=== PATIENT | male | born 1960 | race Caucasian/White ===

== ENCOUNTER 2016-12-04 03:22 | Emergency (ER) | payer BC ==
[~2016-12-04] VITALS: Ht 177.8 cm; Wt 88.3 kg
[2016-12-04] MEDS ORDERED: PREDNISONE50 MG PO (04:25)
[2016-12-04] MEDS ORDERED: NORCO 5/3251 TABLET PO (04:25)
[2016-12-04] MEDS ORDERED: VALIUM5 MG PO (04:25)
[2016-12-04] MEDS ORDERED: PERCOCET 5/31 TABLET PO (06:26)
[2016-12-04 06:36] VITALS: BP 158/104
== END 2016-12-04 06:38 | disposition home or self-care (01) ==
LOC: EXP 03:22 → EDSEX 03:22 → EME 03:22 → EXP 06:38
DX: M54.5 Low back pain (principal); G89.29 Other chronic pain; M48.00 Spinal stenosis, site unspecified; Z87.891 Personal history of nicotine dependence
CPT/HCPCS: 99281; 99285; J1885; J2270; J7512

== ENCOUNTER 2016-12-17 09:11 | Emergency (ER) | payer BC ==
[~2016-12-17] VITALS: Ht 177.8 cm; Wt 84.6 kg
[~2016-12-17 09:11] MED LIST: NORCO 5/3251 TABLET PO; PERCOCET 5/31 TABLET PO; PREDNISONE50 MG PO; VALIUM5 MG PO
[2016-12-17] MEDS ORDERED: FIORICET 50-301 EACH PO (11:10)
[2016-12-17 11:36] VITALS: BP 151/81
== END 2016-12-17 12:38 | disposition home or self-care (01) ==
LOC: EME 09:11
DX: R51 Headache (principal); G97.1 Other reaction to spinal and lumbar puncture; R42 Dizziness and giddiness; R11.2 Nausea with vomiting, unspecified; M79.604 Pain in right leg; M54.2 Cervicalgia; Z87.891 Personal history of nicotine dependence
CPT/HCPCS: 70450; 99281; 99285; J1200; J1885; J2765; J7030